=== PATIENT | female | born 1945 | race Caucasian/White ===

== ENCOUNTER 2016-11-05 06:39 | Emergency (ER) | payer MEDICAID ==
[~2016-11-05] VITALS: Ht 162.6 cm; Wt 98.0 kg
[~2016-11-05 06:39] MED LIST: ASPI-1035 PO; ATOR80TA PO; DOCU-150 PO; FERR-63 PO; GABA-531 PO; LISI10TA5 PO; MAGN400T27 PO; OMEP20TA80 PO
[2016-11-05] MEDS ORDERED: ONDANSETRON HCL 4MG/2ML VIAL IV STA (06:57)
[2016-11-05] MEDS ORDERED: SODIUM CHLORIDE 0.9% 500 ML IV ONE (06:57)
[2016-11-05] MEDS ORDERED: MORPHINE SULFATE 4 MG/ML CPJ (NOT FOR IM USE) IV STA (06:57)
[2016-11-05 07:22] LABS: BASOPHILS % 0.5 % (0.0-2.0); EOSINOPHILS % 2.2 % (0.0-5.0); HEMATOCRIT. 41.6 % (36.0-48.0); HEMOGLOBIN. 13.7 g/dL (12.0-16.0); LYMPHOCYTES % 16.6 % (20.0-50.0); MEAN CORPUSCULAR HEMOGLOBIN 27.9 pg (28.0-32.0); MEAN CORPUSCULAR HGB CONC 32.8 g/dL (31.0-37.0); MEAN CORPUSCULAR VOLUME 84.8 fL (81.0-99.0); MEAN PLATELET VOLUME 9.2 fl (7.4-10.4); MONOCYTES % 9.2 % (2.0-8.0); NEUTROPHILS % 71.5 % (40.0-76.0); PLATELET 196 x1000/uL (130-400); RED BLOOD CELL COUNT 4.91 mill/uL (4.2-5.4); RED CELL DISTRIBUTION WIDTH 15.1 % (11.6-14.6); WHITE BLOOD COUNT 4.9 x1000/uL (4.5-11.0)
[2016-11-05 07:29] LABS: PROTHROMBIN TIME 10.8 sec
[2016-11-05 07:35] LABS: ALANINE AMINOTRANSFERASE 14 IU/L (13-61); ALBUMIN 3.3 g/dL (3.4-5.0); ANION GAP 11; CALCIUM 8.8 mg/dL (8.5-10.1); CARBON DIOXIDE 28 mEq/L (21-32); CHLORIDE 106 mEq/L (98-107); INDEX HEMOLYSI 1 (1-3); INDEX ICTERIC 1 (1-4); INDEX LIPEMIC 1 (1-3); LIPASE 218 IU/L (73-393); UREA NITROGEN BLOOD 12 mg/dL (7-21); eGFR > 60 mL/min (>60)
[2016-11-05 07:37] LABS: CLARITY URINE CLEAR (CLEAR); COLOR URINE YELLOW (YELLOW); GLUCOSE URINE NEGATIVE (NEGATIVE); KETONES URINE NEGATIVE (NEGATIVE); LEUKOCYTE ESTERASE URINE 3+ (NEGATIVE); NITRITE URINE NEGATIVE (NEGATIVE); OCCULT BLOOD URINE TRACE (NEGATIVE); PROTEIN URINE NEGATIVE (NEGATIVE); SPECIFIC GRAVITY URINE 1.013 (1.005-1.030); UROBILINOGEN URINE 0.2 E.U./dL (0.2-1.0)
[2016-11-05 08:01] VITALS: BP 149/51
[2016-11-05 08:03] LABS: BACTERIA URINE NONE SEEN; RBC URINE 0-2 /hpf (0-2); SQUAMOUS EPITHELIAL CELL URINE FEW /lpf (RARE/1+)
[2016-11-05] MEDS ORDERED: IOHEXOL-300 100 ML BOTTLE ONE (13:16)
[2016-11-05] MEDS ORDERED: SODIUM CHLORIDE 0.9% 10ML VIAL ONE (13:16)
== END 2016-11-05 10:03 | disposition home or self-care (01) ==
LOC: ER 06:44
DX: K65.4 Sclerosing mesenteritis (principal); E78.00 Pure hypercholesterolemia, unspecified; D25.9 Leiomyoma of uterus, unspecified; I10 Essential (primary) hypertension; N93.8 Other specified abnormal uterine and vaginal bleeding; R10.11 Right upper quadrant pain; Z79.82 Long term (current) use of aspirin
CPT/HCPCS: 36415; 74177; 80053; 81001; 83690; 85025; 85610; 96361; 96374; 96375; 99285; A4216; J2270; J2405; J7040; Q9967; Z7610; J7030

== ENCOUNTER 2021-04-24 11:25 | Inpatient (IN) | payer MEDICARE, OTHER ==
[~2021-04-24] VITALS: Ht 162.6 cm; Wt 158.8 kg
[~2021-04-24 11:25] MED LIST changes: -ASPI-1035 PO; +ASPI-1497 PO; +CALC1TAB99 PO; -GABA-531 PO; +GABA-532 PO; +LATA2.5D14 EACHEYE; +LISI10TA26 PO; -LISI10TA5 PO; -MAGN400T27 PO; +MAGN400T8 PO; +OMEP20TA2 PO; -OMEP20TA80 PO
[2021-04-24 12:13] LABS: BASOPHILS % 0.7 % (0.0-2.0); EOSINOPHILS % 4.2 % (0.0-5.0); HEMATOCRIT. 33.3 % (36.0-48.0); HEMOGLOBIN. 10.9 g/dL (12.0-16.0); LYMPHOCYTES % 8.2 % (20.0-50.0); MEAN CORPUSCULAR HEMOGLOBIN 28.6 pg (28.0-32.0); MEAN CORPUSCULAR VOLUME 87.8 fL (81.0-99.0); MONOCYTES % 14.8 % (2.0-8.0); NEUTROPHILS % 72.1 % (40.0-76.0); PLATELET 244 x1000/uL (130-400); RED BLOOD CELL COUNT 3.79 mill/uL (4.2-5.4)
[2021-04-24 12:21] LABS: CHLORIDE 101 mEq/L (98-107)
[2021-04-24 12:24] LABS: PROTHROMBIN TIME 10.8 sec (9.6-11.0)
[2021-04-24] MEDS ORDERED: DIATR MEGLU/DIATRIZOATE SOLN 30ML ONE (15:17)
[2021-04-24 16:00] VITALS: BP 164/74
[2021-04-24] MEDS ORDERED: SODIUM CHLORIDE 0.9% 1,000 ML IV ONE (17:00)
[2021-04-24] MEDS ORDERED: ONDANSETRON HCL 4MG/2ML INJ IV PRN (17:00)
[2021-04-24] MEDS ORDERED: PANTOPRAZOLE SODIUM 40 MG/VIAL IV SCH (17:30)
[2021-04-24 18:00] VITALS: BP 151/56
[2021-04-24 18:37] VITALS: BP 151/56
[2021-04-24 20:00] VITALS: BP 108/40
[2021-04-24 22:46] LABS: HEMATOCRIT. 31.9 % (36.0-48.0); HEMOGLOBIN. 10.8 g/dL (12.0-16.0); MEAN CORPUSCULAR HEMOGLOBIN 29.2 pg (28.0-32.0); MEAN CORPUSCULAR VOLUME 86.7 fL (81.0-99.0); MEAN PLATELET VOLUME 8.2 fl (7.4-10.4); PLATELET 237 x1000/uL (130-400); RED BLOOD CELL COUNT 3.69 mill/uL (4.2-5.4)
[2021-04-24 22:53] LABS: CHLORIDE 107 mEq/L (98-107)
[2021-04-24 23:29] LABS: PLATELET ESTIMATE NORMAL
[2021-04-25] VITALS (7 sets, daily range): BP systolic 108–125; BP diastolic 40–79
[2021-04-25] MEDS ORDERED: DIATR MEGLU/DIATRIZOATE SOLN 30ML PO NR (08:45)
[2021-04-25] MEDS ORDERED: PANTOPRAZOLE SODIUM 40 MG/VIAL IV SCH (09:00)
[2021-04-25] MEDS ORDERED: IOHEXOL-300 100 ML BOTTLE ONE (11:40)
[2021-04-25] MEDS ORDERED: PIPERACILLIN/TAZOBACTAM 3.375 G in DEXTROSE 5% WATER 50 ML IV SCH (16:00)
== END 2021-04-26 01:00 | disposition home or self-care (01) | DRG 244 ==
LOC: ER 11:25 → EDBEDREQ 13:26 → EDBEDREQTM 13:26 → ENRESERV 13:41 → 8WST 16:04
PROVIDERS: ADMIT Internal Medicine; ATTEND Internal Medicine
DX: K57.31 Diverticulosis of large intestine without perforation or abscess with bleeding (principal); D70.9 Neutropenia, unspecified; E87.1 Hypo-osmolality and hyponatremia; E88.09 Other disorders of plasma-protein metabolism, not elsewhere classified; K76.0 Fatty (change of) liver, not elsewhere classified; I69.354 Hemiplegia and hemiparesis following cerebral infarction affecting left non-dominant side; D25.9 Leiomyoma of uterus, unspecified; D64.9 Anemia, unspecified; Z53.29 Procedure and treatment not carried out because of patient's decision for other reasons; J98.8 Other specified respiratory disorders; E78.00 Pure hypercholesterolemia, unspecified; E78.5 Hyperlipidemia, unspecified; K64.9 Unspecified hemorrhoids; I10 Essential (primary) hypertension; K41.90 Unilateral femoral hernia, without obstruction or gangrene, not specified as recurrent; Z90.49 Acquired absence of other specified parts of digestive tract; Z79.82 Long term (current) use of aspirin; Z79.899 Other long term (current) drug therapy; Z85.9 Personal history of malignant neoplasm, unspecified
CPT/HCPCS: 36415; 71045; 74177; 78278; 80048; 80053; 85025; 86850; 86900; 93005; 99285; A9560; J2543; J7060; Q9963; Q9967

== ENCOUNTER 2021-05-07 07:17 | Emergency (ER) | payer MEDICARE, OTHER ==
[~2021-05-07] VITALS: Ht 165.1 cm; Wt 136.0 kg
[2021-05-07] MEDS ORDERED: PANTOPRAZOLE SODIUM 40 MG/VIAL IV STA (08:14)
[2021-05-07 08:48] LABS: HEMATOCRIT. 32.8 % (36.0-48.0); HEMOGLOBIN. 10.8 g/dL (12.0-16.0); MEAN CORPUSCULAR HEMOGLOBIN 29.2 pg (28.0-32.0); MEAN CORPUSCULAR VOLUME 88.4 fL (81.0-99.0); MEAN PLATELET VOLUME 8.7 fl (7.4-10.4); PLATELET 230 x1000/uL (130-400); RED BLOOD CELL COUNT 3.71 mill/uL (4.2-5.4); RED CELL DISTRIBUTION WIDTH 16.6 % (11.6-14.6)
[2021-05-07 08:51] LABS: CHLORIDE 103 mEq/L (98-107)
[2021-05-07 08:55] LABS: PARTIAL THROMBOPLASTIN TIME 23.3 sec (23.4-31.0)
[2021-05-07 10:06] LABS: PLATELET ESTIMATE NORMAL
[2021-05-07 11:30] VITALS: BP 153/76
== END 2021-05-07 11:52 | disposition short-term general hospital (02) ==
LOC: ER 07:17 → CANBEDREQ 05-08 08:47
DX: K92.2 Gastrointestinal hemorrhage, unspecified (principal); I49.9 Cardiac arrhythmia, unspecified; I10 Essential (primary) hypertension
CPT/HCPCS: 36415; 71045; 80053; 85025; 86850; 86900; 93005; 96374; 99285

== ENCOUNTER 2021-12-18 12:22 | Emergency (ER) | payer MEDICARE, OTHER ==
[~2021-12-18] VITALS: Ht 165.1 cm; Wt 100.0 kg
[~2021-12-18 12:22] MED LIST changes: +MAGN400T55 PO; -MAGN400T8 PO; -OMEP20TA2 PO; +OMEP20TA23 PO
[2021-12-18] MEDS ORDERED: SODIUM CHLORIDE 0.9% 1,000 ML IV ONE (12:45)
[2021-12-18 13:26] LABS: BASOPHILS % 0.7 % (0.0-2.0); HEMATOCRIT. 31.2 % (36.0-48.0); HEMOGLOBIN. 9.8 g/dL (12.0-16.0); LYMPHOCYTES % 14.2 % (20.0-50.0); MEAN CORPUSCULAR HEMOGLOBIN 25.4 pg (28.0-32.0); MEAN CORPUSCULAR VOLUME 80.9 fL (81.0-99.0); MEAN PLATELET VOLUME 8.7 fl (7.4-10.4); MONOCYTES % 9.9 % (2.0-8.0); NEUTROPHILS % 73.2 % (40.0-76.0); PLATELET 255 x1000/uL (130-400); RED BLOOD CELL COUNT 3.86 mill/uL (4.2-5.4); RED CELL DISTRIBUTION WIDTH 18.2 % (11.6-14.6)
[2021-12-18 13:34] LABS: CHLORIDE 104 mEq/L (98-107)
[2021-12-18 13:37] LABS: PARTIAL THROMBOPLASTIN TIME 27.4 sec (23.4-31.0)
[2021-12-18 19:10] VITALS: BP 128/59
== END 2021-12-18 20:00 | disposition short-term general hospital (02) ==
LOC: ER 12:22
DX: K92.2 Gastrointestinal hemorrhage, unspecified (principal); Z87.19 Personal history of other diseases of the digestive system; Z20.822 Contact with and (suspected) exposure to COVID-19; I10 Essential (primary) hypertension; D50.9 Iron deficiency anemia, unspecified; E78.00 Pure hypercholesterolemia, unspecified; I69.998 Other sequelae following unspecified cerebrovascular disease; I69.944 Monoplegia of lower limb following unspecified cerebrovascular disease affecting left non-dominant side; Z74.01 Bed confinement status; Z85.9 Personal history of malignant neoplasm, unspecified; Z79.899 Other long term (current) drug therapy
CPT/HCPCS: 36415; 71045; 80053; 82270; 83880; 85025; 85610; 85730; 87426; 93005; 96360; 96361; 99285; C9803; J7030

== ENCOUNTER 2022-04-09 07:24 | Emergency (ER) | payer MEDICARE, OTHER ==
[~2022-04-09] VITALS: Ht 165.1 cm; Wt 100.0 kg
[2022-04-09] MEDS ORDERED: PANTOPRAZOLE SODIUM 40 MG/VIAL IV STA (07:56)
[2022-04-09 08:24] LABS: BASOPHILS % 0.7 % (0.0-2.0); EOSINOPHILS % 4.4 % (0.0-5.0); HEMATOCRIT. 25.4 % (36.0-48.0); HEMOGLOBIN. 7.8 g/dL (12.0-16.0); LYMPHOCYTES % 23.4 % (20.0-50.0); MEAN CORPUSCULAR HEMOGLOBIN 23.4 pg (28.0-32.0); MEAN CORPUSCULAR VOLUME 76.1 fL (81.0-99.0); MEAN PLATELET VOLUME 8.4 fl (7.4-10.4); MONOCYTES % 11.2 % (2.0-8.0); NEUTROPHILS % 60.3 % (40.0-76.0); PLATELET 272 x1000/uL (130-400); RED BLOOD CELL COUNT 3.33 mill/uL (4.2-5.4); RED CELL DISTRIBUTION WIDTH 20.6 % (11.6-14.6)
[2022-04-09 08:31] LABS: CHLORIDE 102 mEq/L (98-107)
[2022-04-09 08:34] LABS: PARTIAL THROMBOPLASTIN TIME 30.2 sec (23.4-31.0); PROTHROMBIN TIME 11.1 sec (9.6-11.0)
[2022-04-09 09:01] VITALS: BP 130/72
== END 2022-04-09 10:39 | disposition short-term general hospital (02) ==
LOC: ER 07:24 → CANBEDREQ 08:49 → ER 10:39
DX: K92.2 Gastrointestinal hemorrhage, unspecified (principal); C56.9 Malignant neoplasm of unspecified ovary; D64.9 Anemia, unspecified; I10 Essential (primary) hypertension; I49.3 Ventricular premature depolarization; E78.00 Pure hypercholesterolemia, unspecified; Z86.73 Personal history of transient ischemic attack (TIA), and cerebral infarction without residual deficits; Z74.01 Bed confinement status
CPT/HCPCS: 36415; 80053; 83690; 85025; 85610; 85730; 86850; 86900; 86901; 93005; 96374; 99284; C9113

== ENCOUNTER 2022-06-13 09:09 | Inpatient (IN) | payer MEDICARE, OTHER ==
[~2022-06-13] VITALS: Ht 165.1 cm; Wt 126.1 kg
[2022-06-13] MEDS ORDERED: ONDANSETRON HCL 4MG/2ML INJ IV STA (09:13)
[2022-06-13 10:56] LABS: BASOPHILS % 0.9 % (0.0-2.0); EOSINOPHILS % 2.1 % (0.0-5.0); LYMPHOCYTES % 14.3 % (20.0-50.0); MEAN CORPUSCULAR HEMOGLOBIN 23.4 pg (28.0-32.0); MEAN CORPUSCULAR VOLUME 75.8 fL (81.0-99.0); MEAN PLATELET VOLUME 7.7 fl (7.4-10.4); MONOCYTES % 6.4 % (2.0-8.0); NEUTROPHILS % 76.3 % (40.0-76.0); PLATELET 317 x1000/uL (130-400); RED BLOOD CELL COUNT 2.11 mill/uL (4.2-5.4); RED CELL DISTRIBUTION WIDTH 21.3 % (11.6-14.6)
[2022-06-13 11:05] LABS: CHLORIDE 102 mEq/L (98-107)
[2022-06-13 11:14] LABS: HEMATOCRIT. 15.9 % (36.0-48.0); HEMOGLOBIN. 4.9 g/dL (12.0-16.0)
[2022-06-13 11:15] LABS: INR 1.1; PROTHROMBIN TIME 11.8 sec (9.6-11.0)
[2022-06-13] MEDS: DEXT 5%/0.45% NACL 1000ML 1,000 ML IV SCH (13:30)
[2022-06-13] MEDS ORDERED: NALOXONE HCL 0.4MG/ML VIAL IV PRN (13:30)
[2022-06-13] MEDS ORDERED: PANTOPRAZOLE SODIUM 40 MG/VIAL IV SCH (13:30)
[2022-06-13] MEDS ORDERED: GUAIFENESIN 200MG/10ML SUGAR FREE UDC PO PRN (13:30)
[2022-06-13] MEDS: PANTOPRAZOLE SODIUM 40 MG/VIAL IV SCH (14:30)
[2022-06-13 14:47] LABS: TOTAL IRON BINDING CAPACITY 366 ug/dL (250-450)
[2022-06-13 14:56] LABS: FERRITIN 5 ng/mL (10-291)
[2022-06-13 15:05] LABS: VITAMIN B12 SERUM 644 pg/mL (211-911)
[2022-06-13] MEDS: IRON SUCROSE COMPLEX 100 MG/5 ML ML IV SCH (18:00)
[2022-06-14] VITALS (9 sets, daily range): BP systolic 52–121; BP diastolic 17–71
[2022-06-14] MEDS ORDERED: SODIUM CHLORIDE 0.9% 500 ML IV NR
[2022-06-14] MEDS: PANTOPRAZOLE SODIUM 40 MG/VIAL IV SCH ×3 (00:04→21:00)
[2022-06-14] MEDS: DEXT 5%/0.45% NACL 1000ML 1,000 ML IV SCH ×2 (06:00→06:10)
[2022-06-14 09:56] LABS: BASOPHILS % 0.4 % (0.0-2.0); LYMPHOCYTES % 14.3 % (20.0-50.0); MEAN CORPUSCULAR HEMOGLOBIN 23.1 pg (28.0-32.0); MONOCYTES % 9.2 % (2.0-8.0); NEUTROPHILS % 74.1 % (40.0-76.0); PLATELET 295 x1000/uL (130-400); RED BLOOD CELL COUNT 1.93 mill/uL (4.2-5.4); RED CELL DISTRIBUTION WIDTH 21.9 % (11.6-14.6)
[2022-06-14 10:02] LABS: HEMATOCRIT. 14.6 % (36.0-48.0); HEMOGLOBIN. 4.5 g/dL (12.0-16.0)
[2022-06-14 10:37] LABS: CHLORIDE 108 mEq/L (98-107)
[2022-06-14 11:03] LABS: HDL CHOLESTEROL 32 mg/dL (40-59); LDL CHOLESTEROL 40 mg/dL (5-100)
[2022-06-14] MEDS: IRON SUCROSE COMPLEX 100 MG/5 ML ML IV SCH (18:00)
[2022-06-15] VITALS (10 sets, daily range): BP systolic 93–161; BP diastolic 43–78
[2022-06-15 07:26] LABS: BASOPHILS % 0.5 % (0.0-2.0); EOSINOPHILS % 2.8 % (0.0-5.0); LYMPHOCYTES % 17.1 % (20.0-50.0); MEAN CORPUSCULAR HEMOGLOBIN 23.1 pg (28.0-32.0); MEAN CORPUSCULAR VOLUME 77.6 fL (81.0-99.0); MEAN PLATELET VOLUME 8.5 fl (7.4-10.4); MONOCYTES % 10.4 % (2.0-8.0); NEUTROPHILS % 69.2 % (40.0-76.0); PLATELET 275 x1000/uL (130-400); RED BLOOD CELL COUNT 1.68 mill/uL (4.2-5.4)
[2022-06-15 07:38] LABS: HEMOGLOBIN. 3.9 g/dL (12.0-16.0)
[2022-06-15] MEDS: PANTOPRAZOLE SODIUM 40 MG/VIAL IV SCH ×2 (09:00→20:43)
[2022-06-15] MEDS: DEXT 5%/0.45% NACL 1000ML 1,000 ML IV SCH (15:42)
[2022-06-15] MEDS: IRON SUCROSE COMPLEX 100 MG/5 ML ML IV SCH (17:21)
[2022-06-15] MEDS: EPOETIN ALFA-EPBX 4,000 UNIT/ML VIAL SUBCUT SCH (20:43)
[2022-06-16] VITALS (12 sets, daily range): BP systolic 97–137; BP diastolic 45–84
[2022-06-16] MEDS: ONDANSETRON HCL 4MG/2ML INJ IV PRN (00:49)
[2022-06-16] MEDS: TRAMADOL 50MG TABLET PO PRN (00:50)
[2022-06-16 06:58] LABS: BASOPHILS % 0.3 % (0.0-2.0); EOSINOPHILS % 2.3 % (0.0-5.0); LYMPHOCYTES % 16.3 % (20.0-50.0); MEAN CORPUSCULAR HEMOGLOBIN 23.7 pg (28.0-32.0); MEAN CORPUSCULAR VOLUME 78.4 fL (81.0-99.0); MONOCYTES % 10.8 % (2.0-8.0); NEUTROPHILS % 70.3 % (40.0-76.0); PLATELET 215 x1000/uL (130-400); RED BLOOD CELL COUNT 1.32 mill/uL (4.2-5.4); RED CELL DISTRIBUTION WIDTH 21.5 % (11.6-14.6)
[2022-06-16] MEDS: DEXT 5%/0.45% NACL 1000ML 1,000 ML IV SCH (08:10)
[2022-06-16 08:42] LABS: HEMOGLOBIN. 3.1 g/dL (12.0-16.0)
[2022-06-16 08:43] LABS: HEMATOCRIT. 10.3 % (36.0-48.0)
[2022-06-16] MEDS: PANTOPRAZOLE SODIUM 40 MG/VIAL IV SCH ×2 (09:34→21:13)
[2022-06-17] VITALS (12 sets, daily range): BP systolic 100–179; BP diastolic 44–70
[2022-06-17] MEDS: DEXT 5%/0.45% NACL 1000ML 1,000 ML IV SCH ×2 (01:01→21:03)
[2022-06-17] MEDS: TRAMADOL 50MG TABLET PO PRN ×2 (01:07→21:06)
[2022-06-17] MEDS: PANTOPRAZOLE SODIUM 40 MG/VIAL IV SCH ×2 (08:42→21:05)
[2022-06-17 13:36] LABS: BASOPHILS % 0.2 % (0.0-2.0); EOSINOPHILS % 3.3 % (0.0-5.0); LYMPHOCYTES % 14.2 % (20.0-50.0); MEAN CORPUSCULAR HEMOGLOBIN 24.5 pg (28.0-32.0); MEAN PLATELET VOLUME 8.3 fl (7.4-10.4); MONOCYTES % 8.6 % (2.0-8.0); NEUTROPHILS % 73.7 % (40.0-76.0); PLATELET 317 x1000/uL (130-400); RED BLOOD CELL COUNT 1.99 mill/uL (4.2-5.4); RED CELL DISTRIBUTION WIDTH 22.7 % (11.6-14.6)
[2022-06-17 13:55] LABS: HEMATOCRIT. 16.3 % (36.0-48.0); HEMOGLOBIN. 4.9 g/dL (12.0-16.0)
[2022-06-17 14:12] LABS: PLATELET ESTIMATE NORMAL
[2022-06-17] MEDS: EPOETIN ALFA-EPBX 4,000 UNIT/ML VIAL SUBCUT SCH (21:05)
[2022-06-18] VITALS (16 sets, daily range): BP systolic 118–169; BP diastolic 55–86
[2022-06-18] MEDS: PANTOPRAZOLE SODIUM 40 MG/VIAL IV SCH ×2 (08:53→21:42)
[2022-06-18] MEDS: IRON SUCROSE COMPLEX 100 MG/5 ML ML IV SCH (08:54)
[2022-06-18 10:00] LABS: BASOPHILS % 0.4 % (0.0-2.0); EOSINOPHILS % 3.8 % (0.0-5.0); LYMPHOCYTES % 18.1 % (20.0-50.0); MEAN CORPUSCULAR HEMOGLOBIN 24.2 pg (28.0-32.0); MEAN CORPUSCULAR VOLUME 80.9 fL (81.0-99.0); MEAN PLATELET VOLUME 8.1 fl (7.4-10.4); MONOCYTES % 12.4 % (2.0-8.0); NEUTROPHILS % 65.3 % (40.0-76.0); PLATELET 263 x1000/uL (130-400); RED BLOOD CELL COUNT 1.72 mill/uL (4.2-5.4); RED CELL DISTRIBUTION WIDTH 22.3 % (11.6-14.6)
[2022-06-18 10:05] LABS: HEMATOCRIT. 13.9 % (36.0-48.0); HEMOGLOBIN. 4.2 g/dL (12.0-16.0)
[2022-06-18 10:17] LABS: TOTAL IRON BINDING CAPACITY 342 ug/dL (250-450)
[2022-06-18] MEDS: DEXT 5%/0.45% NACL 1000ML 1,000 ML IV SCH (12:14)
[2022-06-18] MEDS ORDERED: IRON SUCROSE COMPLEX 100 MG/5 ML ML IV SCH (12:45)
[2022-06-19] VITALS (12 sets, daily range): BP systolic 139–182; BP diastolic 63–83
[2022-06-19] MEDS: DEXT 5%/0.45% NACL 1000ML 1,000 ML IV SCH ×2 (02:25→17:56)
[2022-06-19 06:09] LABS: BASOPHILS % 0.5 % (0.0-2.0); LYMPHOCYTES % 10.9 % (20.0-50.0); MEAN CORPUSCULAR HEMOGLOBIN 24.2 pg (28.0-32.0); MEAN CORPUSCULAR VOLUME 80.1 fL (81.0-99.0); MEAN PLATELET VOLUME 8.1 fl (7.4-10.4); MONOCYTES % 9.8 % (2.0-8.0); NEUTROPHILS % 74.8 % (40.0-76.0); PLATELET 267 x1000/uL (130-400); RED BLOOD CELL COUNT 1.69 mill/uL (4.2-5.4); RED CELL DISTRIBUTION WIDTH 22.5 % (11.6-14.6)
[2022-06-19 06:58] LABS: HEMATOCRIT. 13.5 % (36.0-48.0); HEMOGLOBIN. 4.1 g/dL (12.0-16.0)
[2022-06-19] MEDS: IRON SUCROSE COMPLEX 100 MG/5 ML ML IV SCH (08:55)
[2022-06-19] MEDS: PANTOPRAZOLE SODIUM 40 MG/VIAL IV SCH ×2 (08:56→21:16)
[2022-06-19] MEDS: AMLODIPINE 10MG TABLET PO SCH (09:01)
[2022-06-19] MEDS ORDERED: HYDRALAZINE HCL 50MG TABLET PO SCH (19:30)
[2022-06-19] MEDS: HYDRALAZINE HCL 50MG TABLET PO SCH (21:18)
[2022-06-20] VITALS (13 sets, daily range): BP systolic 120–156; BP diastolic 56–78
[2022-06-20] MEDS: PANTOPRAZOLE SODIUM 40 MG/VIAL IV SCH ×2 (08:28→21:14)
[2022-06-20] MEDS: IRON SUCROSE COMPLEX 100 MG/5 ML ML IV SCH (08:31)
[2022-06-20] MEDS: ACETAMINOPHEN 325MG TABLET PO PRN (08:31)
[2022-06-20] MEDS: AMLODIPINE 10MG TABLET PO SCH (08:32)
[2022-06-20] MEDS: HYDRALAZINE HCL 50MG TABLET PO SCH ×3 (08:32→18:14)
[2022-06-20] MEDS: DEXT 5%/0.45% NACL 1000ML 1,000 ML IV SCH (12:19)
[2022-06-20] MEDS: ONDANSETRON HCL 4MG/2ML INJ IV PRN (21:14)
[2022-06-20] MEDS: EPOETIN ALFA-EPBX 4,000 UNIT/ML VIAL SUBCUT SCH (21:15)
[2022-06-21] VITALS (12 sets, daily range): BP systolic 107–154; BP diastolic 43–74
[2022-06-21] MEDS: ONDANSETRON HCL 4MG/2ML INJ IV PRN ×2 (02:35→21:23)
[2022-06-21] MEDS: ACETAMINOPHEN 325MG TABLET PO PRN ×2 (02:36→21:24)
[2022-06-21] MEDS: DEXT 5%/0.45% NACL 1000ML 1,000 ML IV SCH ×2 (02:57→21:23)
[2022-06-21] MEDS: PANTOPRAZOLE SODIUM 40 MG/VIAL IV SCH ×2 (09:14→21:24)
[2022-06-21] MEDS: AMLODIPINE 10MG TABLET PO SCH (09:15)
[2022-06-21] MEDS: HYDRALAZINE HCL 50MG TABLET PO SCH ×3 (09:15→16:25)
[2022-06-21] MEDS: IRON SUCROSE COMPLEX 100 MG/5 ML ML IV SCH (12:58)
[2022-06-22] VITALS (10 sets, daily range): BP systolic 90–123; BP diastolic 43–68
[2022-06-22] MEDS: HYDRALAZINE HCL 50MG TABLET PO SCH ×3 (09:00→17:00)
[2022-06-22] MEDS: AMLODIPINE 10MG TABLET PO SCH (09:00)
[2022-06-22] MEDS: PANTOPRAZOLE SODIUM 40 MG/VIAL IV SCH ×2 (09:00→20:22)
[2022-06-22 09:05] LABS: BASOPHILS % 0.5 % (0.0-2.0); EOSINOPHILS % 3.3 % (0.0-5.0); LYMPHOCYTES % 13.4 % (20.0-50.0); MEAN CORPUSCULAR HEMOGLOBIN 24.7 pg (28.0-32.0); MEAN CORPUSCULAR VOLUME 83.1 fL (81.0-99.0); MEAN PLATELET VOLUME 8.3 fl (7.4-10.4); MONOCYTES % 11.1 % (2.0-8.0); NEUTROPHILS % 71.7 % (40.0-76.0); PLATELET 298 x1000/uL (130-400); RED BLOOD CELL COUNT 1.95 mill/uL (4.2-5.4); RED CELL DISTRIBUTION WIDTH 29.2 % (11.6-14.6)
[2022-06-22 09:15] LABS: HEMOGLOBIN. 4.8 g/dL (12.0-16.0)
[2022-06-22 09:16] LABS: HEMATOCRIT. 16.2 % (36.0-48.0)
[2022-06-22] MEDS: IRON SUCROSE COMPLEX 100 MG/5 ML ML IV SCH (14:11)
[2022-06-22] MEDS: DEXT 5%/0.45% NACL 1000ML 1,000 ML IV SCH (14:11)
[2022-06-22] MEDS: FERROUS SULFATE 325MG TABLET PO SCH (18:52)
[2022-06-22] MEDS: ASCORBIC ACID 500 MG TABLET PO SCH (18:53)
[2022-06-22] MEDS: ONDANSETRON HCL 4MG/2ML INJ IV PRN (20:22)
[2022-06-22] MEDS: ACETAMINOPHEN 325MG TABLET PO PRN (20:55)
[2022-06-23] VITALS (9 sets, daily range): BP systolic 124–138; BP diastolic 51–91
[2022-06-23] MEDS: DEXT 5%/0.45% NACL 1000ML 1,000 ML IV SCH ×2 (05:46→23:04)
[2022-06-23] MEDS: PANTOPRAZOLE SODIUM 40 MG/VIAL IV SCH ×2 (08:49→20:46)
[2022-06-23] MEDS: HYDRALAZINE HCL 50MG TABLET PO SCH ×3 (08:50→17:27)
[2022-06-23] MEDS: FERROUS SULFATE 325MG TABLET PO SCH ×2 (08:50→17:26)
[2022-06-23] MEDS: ASCORBIC ACID 500 MG TABLET PO SCH ×2 (08:50→17:26)
[2022-06-23] MEDS: AMLODIPINE 10MG TABLET PO SCH (08:51)
[2022-06-24] VITALS (9 sets, daily range): BP systolic 101–161; BP diastolic 48–68
[2022-06-24] MEDS: PANTOPRAZOLE SODIUM 40 MG/VIAL IV SCH ×2 (08:56→21:05)
[2022-06-24] MEDS: AMLODIPINE 10MG TABLET PO SCH (08:57)
[2022-06-24] MEDS: HYDRALAZINE HCL 50MG TABLET PO SCH ×3 (08:58→18:13)
[2022-06-24] MEDS: ASCORBIC ACID 500 MG TABLET PO SCH ×2 (08:58→18:13)
[2022-06-24] MEDS: FERROUS SULFATE 325MG TABLET PO SCH ×2 (08:58→18:13)
[2022-06-24 16:05] LABS: BASOPHILS % 0.6 % (0.0-2.0); EOSINOPHILS % 4.7 % (0.0-5.0); LYMPHOCYTES % 17.1 % (20.0-50.0); MEAN CORPUSCULAR HEMOGLOBIN 25.3 pg (28.0-32.0); MEAN CORPUSCULAR VOLUME 88.6 fL (81.0-99.0); MEAN PLATELET VOLUME 8.3 fl (7.4-10.4); MONOCYTES % 12.1 % (2.0-8.0); NEUTROPHILS % 65.5 % (40.0-76.0); PLATELET 325 x1000/uL (130-400); RED BLOOD CELL COUNT 2.06 mill/uL (4.2-5.4); RED CELL DISTRIBUTION WIDTH 31.4 % (11.6-14.6)
[2022-06-24] MEDS: DEXT 5%/0.45% NACL 1000ML 1,000 ML IV SCH (16:10)
[2022-06-24 16:11] LABS: HEMOGLOBIN. 5.2 g/dL (12.0-16.0)
[2022-06-24 16:12] LABS: HEMATOCRIT. 18.3 % (36.0-48.0)
[2022-06-25] VITALS: BP 118/56
[2022-06-25] MEDS: ACETAMINOPHEN 325MG TABLET PO PRN (02:31)
[2022-06-25 04:00] VITALS: BP 126/53
[2022-06-25 08:00] VITALS: BP 145/54
[2022-06-25] MEDS: PANTOPRAZOLE SODIUM 40 MG/VIAL IV SCH (09:00)
[2022-06-25] MEDS: FERROUS SULFATE 325MG TABLET PO SCH (09:10)
[2022-06-25] MEDS: ASCORBIC ACID 500 MG TABLET PO SCH (09:10)
[2022-06-25] MEDS: AMLODIPINE 10MG TABLET PO SCH (09:10)
[2022-06-25] MEDS: HYDRALAZINE HCL 50MG TABLET PO SCH (09:10)
== END 2022-06-25 10:20 | disposition home health service (06) | DRG 244 ==
LOC: ER 09:09 → MICUSO 12:48 → EDBEDREQTM 21:44 → EDBEDREQSVC 21:44 → 5EST 06-14 02:30
PROVIDERS: ADMIT Hospitalist; ATTEND Hospitalist
PROC: 05H533Z Insertion of Infusion Device into Right Subclavian Vein, Percutaneous Approach (ICD-10-PCS; principal; 2022-06-14)
PROC: B546ZZA Ultrasonography of Right Subclavian Vein, Guidance (ICD-10-PCS; 2022-06-14)
DX: K57.31 Diverticulosis of large intestine without perforation or abscess with bleeding (principal); N17.9 Acute kidney failure, unspecified; E43 Unspecified severe protein-calorie malnutrition; D50.0 Iron deficiency anemia secondary to blood loss (chronic); K64.8 Other hemorrhoids; E78.5 Hyperlipidemia, unspecified; I10 Essential (primary) hypertension; E78.00 Pure hypercholesterolemia, unspecified; K40.90 Unilateral inguinal hernia, without obstruction or gangrene, not specified as recurrent; Z68.42 Body mass index [BMI] 45.0-49.9, adult; Z79.82 Long term (current) use of aspirin; Z53.1 Procedure and treatment not carried out because of patient's decision for reasons of belief and group pressure; Z90.49 Acquired absence of other specified parts of digestive tract; Z85.72 Personal history of non-Hodgkin lymphomas; Z85.028 Personal history of other malignant neoplasm of stomach; Z86.73 Personal history of transient ischemic attack (TIA), and cerebral infarction without residual deficits
CPT/HCPCS: 36415; 36573; 71045; 74176; 78278; 80048; 80053; 80061; 82378; 82607; 82728; 82746; 83540; 83550; 85025; 85044; 86304; 93005; 93970; 97166; 97530; 99285; A9560; C1725; C1893; C9113; J0885; J2405